=== PATIENT | female | born 1970 | race Caucasian/White ===

== ENCOUNTER 2019-07-18 13:13 | Emergency (ER) | payer BC, MEDICAID ==
[~2019-07-18] VITALS: Ht 152.4 cm; Wt 68.0 kg
[~2019-07-18 13:13] MED LIST: LISI10TA11 PO; PARO40TA1 PO; RANI-287 PO; SYN.075 PO
[2019-07-18 13:20] VITALS: BP 176/84
[2019-07-18] MEDS ORDERED: KETOROLAC 30 MG/ML VIAL IM/IVP ONE (13:45)
[2019-07-18] MEDS ORDERED: METOCLOPRAMIDE 10 MG/2 ML INJ VIAL IVP ONE (13:45)
[2019-07-18] MEDS ORDERED: NACL 0.9% 1,000 ML IV ONE (13:45)
[2019-07-18] MEDS ORDERED: diphenhydrAMINE 50 MG/ML VIAL IVP ONE (13:45)
[2019-07-18 15:17] VITALS: BP 155/79
== END 2019-07-18 15:18 | disposition home or self-care (01) ==
LOC: MED 13:13
DX: R51 Headache (principal); J02.9 Acute pharyngitis, unspecified; M43.6 Torticollis; I10 Essential (primary) hypertension; E07.9 Disorder of thyroid, unspecified; F32.9 Major depressive disorder, single episode, unspecified; Z79.899 Other long term (current) drug therapy
CPT/HCPCS: 96374; 96375; 99284; J1200; J1885; J2765; J7030

== ENCOUNTER 2020-10-04 01:57 | Emergency (ER) | payer BC, OTHER ==
[~2020-10-04] VITALS: Ht 152.4 cm; Wt 75.7 kg
[~2020-10-04 01:57] MED LIST changes: +LISI-486 PO; -LISI10TA11 PO
[2020-10-04 02:02] VITALS: BP 167/90
--- NOTE | 2020-10-04 02:02 | NUR ---
TO BED AMBULATORY
--- NOTE | 2020-10-04 02:10 | NUR ---
PATIENT PRESENTS TO ED WITH C/O RASH X 2 MONTHS . PT STATES "IT COMES EVERY NIGHT". DENIES N/V/D, ANY NEW FOODS OR MEDICATIONS; UPPER EXTREMITIES ARE RED AND URTICARIC; AAOX4 WITH EVEN AND STEADY GAIT; PT DENIES ANY FEVER, CP, SOB, OR COUGH AT THIS TIME; VSS; PATIENT POSITIONED FOR COMFORT; HOB ELEVATED; BEDRAILS UP X2; BED DOWN. ER MD MADE AWARE OF PT STATUS.
--- NOTE | 2020-10-04 03:38 | NUR ---
MIKE BOSCH AT BEDSIDE FOR EXAMINATION
[2020-10-04] MEDS ORDERED: diphenhydrAMINE 50 MG/ML VIAL IVP ONE (03:45)
[2020-10-04] MEDS ORDERED: EPINEPHrine 1 MG/ML AMP SUBQ ONE (03:45)
[2020-10-04] MEDS ORDERED: NACL 0.9% 1,000 ML IV ONE (03:45)
[2020-10-04] MEDS ORDERED: methylPREDNISolone SS 125 MG in WATER STERILE 2 ML IV ONE (03:45)
--- NOTE | 2020-10-04 04:10 | NUR ---
LABS DRAWN AND TAKEN TO LAB.
[2020-10-04] MEDS ORDERED: WATER STERILE 10 ML MC ONE (04:19)
[2020-10-04] MEDS ORDERED: methylPREDNISolone SS 125 MG/2 ML VIAL ONE (04:20)
[2020-10-04 04:23] LABS: BASOPHILS # (AUTO) 0.1 K/uL (0.00-0.22); BASOPHILS % (AUTO) 0.9 % (0.0-2.0); EOSINOPHILS # (AUTO) 0.2 K/uL (0-0.4); EOSINOPHILS % (AUTO) 1.9 % (0.0-4.0); HEMOGLOBIN 13.5 g/dL (12.0-16.0); LYMPHOCYTES # (AUTO) 2.3 K/uL (2.5-16.5); LYMPHOCYTES % (AUTO) 23.4 % (20.5-51.1); MEAN CORPUSCULAR HEMOGLOBIN 29 pg (27-31); MEAN CORPUSCULAR HGB CONC 35 g/dL (33-37); MEAN CORPUSCULAR VOLUME 84.8 fL (80-94); MONOCYTES # (AUTO) 0.7 K/uL (0.8-1.0); MONOCYTES % (AUTO) 6.9 % (1.7-9.3); NEUTROPHILS # (AUTO) 6.7 K/uL (1.8-7.7); NEUTROPHILS % (AUTO) 66.9 % (42.2-75.2); PLATELET COUNT (AUTO) 242 K/uL (140-450); RED CELL DISTRIBUTION WIDTH 14.3 % (11.6-13.7)
--- NOTE | 2020-10-04 05:05 | NUR ---
PT. AMBULATED TO BATHROOM WITH STEADY GAIT.
[2020-10-04 05:10] LABS: CARBON DIOXIDE 25.1 mmol/L (21-32); CREATININE 0.9 mg/dL (0.6-1.3); POTASSIUM 3.1 mmol/L (3.5-5.1)
[2020-10-04 05:16] LABS: TOTAL BILIRUBIN 0.4 mg/dL (0.0-1.0)
[2020-10-04 05:19] LABS: ALBUMIN 3.3 g/dL (3.4-5.0)
[2020-10-04] MEDS ORDERED: FEXO180T82 PO (05:34)
[2020-10-04] MEDS ORDERED: PRED10TA5 PO (05:34)
[2020-10-04 05:40] VITALS: BP 172/73
--- NOTE | 2020-10-04 05:40 | NUR ---
Patient discharged with v/s stable. Written and verbal after care instructions given and explained. Patient alert, oriented and verbalized understanding of instructions. Ambulatory with steady gait. All questions addressed prior to discharge. ID band removed. Patient advised to follow up with PMD. Rx of PREDNISONE AND JACK ALLERGY given. Patient educated on indication of medication including possible reaction and side effects. Opportunity to ask questions provided and answered.
== END 2020-10-04 05:40 | disposition home or self-care (01) ==
LOC: MED 01:57
DX: L50.0 Allergic urticaria (principal); I10 Essential (primary) hypertension; E07.9 Disorder of thyroid, unspecified; Z79.899 Other long term (current) drug therapy; Z90.49 Acquired absence of other specified parts of digestive tract
CPT/HCPCS: 36415; 80053; 85025; 96361; 96372; 96374; 96375; 99291; J0171; J1200; J2930